=== PATIENT | female | born 1950 | race Caucasian/White ===

== ENCOUNTER 2021-02-24 12:54 | Emergency (ER) | payer MEDICARE ==
[~2021-02-24] VITALS: Ht 172.7 cm; Wt 77.3 kg
[2021-02-24] MEDS ORDERED: ONDANSETRON ODT 4 MG ONE (13:30)
[2021-02-24] MEDS ORDERED: ONDANSETRON ODT 4 MG PO ONE (13:30)
--- NOTE | 2021-02-24 14:21 | NUR ---
recheck. pt oriented to self and place, not situation or time. fam at bedside. pt repeats "what happened, did i fall" requently. some abrasions on face. pearrl. rich. vss. denies pain at the moment. as
[2021-02-24] MEDS ORDERED: NEOSPORIN OINT. PKT 1 PACKET ONE (14:48)
== END 2021-02-24 15:31 | disposition home or self-care (01) ==
LOC: MERGE 14:25 → ED 14:25
DX: S06.0X1A Concussion with loss of consciousness of 30 minutes or less, initial encounter (principal); S00.83XA Contusion of other part of head, initial encounter; S00.33XA Contusion of nose, initial encounter; S00.11XA Contusion of right eyelid and periocular area, initial encounter; R41.3 Other amnesia; M54.2 Cervicalgia; R41.0 Disorientation, unspecified; W01.0XXA Fall on same level from slipping, tripping and stumbling without subsequent striking against object, initial encounter; Y93.89 Activity, other specified; Y92.89 Other specified places as the place of occurrence of the external cause; Y99.8 Other external cause status
CPT/HCPCS: 70450; 70486; 72125; 99285; Q0162